=== PATIENT | female | born 1990 | race Caucasian/White ===

== ENCOUNTER 2019-04-17 23:43 | Emergency (ER) | payer MEDICAID, OTHER ==
[~2019-04-17] VITALS: Ht 160 cm; Wt 49.0 kg
[2019-04-17 23:46] VITALS: BP 123/81
[2019-04-18 00:05] LABS: BASOPHILS # (AUTO) 0.03 x10^3/uL (0-0.1); BASOPHILS % (AUTO) 1 % (0-1); EOSINOPHILS # (AUTO) 0.11 x10^3/uL (0-0.4); EOSINOPHILS % (AUTO) 2 % (1-7); LYMPHOCYTES # (AUTO) 2.14 x10^3/uL (1-3.4); LYMPHOCYTES % (AUTO) 40 % (22-44); MD NO; MEAN CORPUSCULAR HEMOGLOBIN 29.8 pg (27.0-34.8); MEAN CORPUSCULAR HGB CONC 33.4 g/dL (32.4-35.8); MEAN CORPUSCULAR VOLUME 89.2 fL (80-100); MEAN PLATELET VOLUME 8.6 fL (7.4-10.4); MONOCYTES # (AUTO) 0.37 x10^3/uL (0.2-0.8); MONOCYTES % (AUTO) 7 % (2-9); NEUTROPHILS # (AUTO) 2.67 x10^3/uL (1.8-6.8); NEUTROPHILS % (AUTO) 50 % (42-75); PLATELET COUNT 228 x10^3/uL (130-400); RED BLOOD COUNT 4.72 x10^6/uL (3.82-5.3); RED CELL DISTRIBUTION WIDTH 13.2 % (9.6-15.2)
[2019-04-18 00:10] LABS: MICROSCOPIC AUTO
[2019-04-18 00:12] LABS: CULTURE INDICATED? YES; HCG UR SG 1.023 (1.003-1.030)
[2019-04-18 00:17] LABS: ALBUMIN 3.9 g/dL (3.4-5.0); ANION GAP 5 mmol/L (5-15); CALCIUM 9.2 mg/dL (8.5-10.1); CHLORIDE 111 mmol/L (98-107); CREATININE 0.74 mg/dL (0.55-1.02)
[2019-04-18 00:19] LABS: ALANINE AMINOTRANSFERASE 79 U/L (12-78); ALKALINE PHOSPHATASE 82 U/L (45-117); BILIRUBIN,TOTAL 0.2 mg/dL (0.2-1.0); TOTAL PROTEIN 7.5 g/dL (6.4-8.2)
[2019-04-18] MEDS ORDERED: CEFTRIAXONE 1,000 MG IM ONE (00:30)
[2019-04-18] MEDS ORDERED: LIDOCAINE-MPF 1%, 2ML ONE (00:39)
[2019-04-18] MEDS ORDERED: CEFTRIAXONE 1,000 MG ONE (00:39)
== END 2019-04-18 00:55 | disposition home or self-care (01) ==
LOC: ED 04-18 00:15
DX: N30.00 Acute cystitis without hematuria (principal); F17.210 Nicotine dependence, cigarettes, uncomplicated
CPT/HCPCS: 36415; 80053; 81001; 81025; 85025; 87086; 96372; 99283; J0696

== ENCOUNTER 2019-09-03 02:49 | Emergency (ER) | payer OTHER ==
[~2019-09-03] VITALS: Ht 160 cm; Wt 48.4 kg
--- NOTE | 2019-09-03 03:15 | NUR ---
THIS IS A 28 YO FEMALE COMING IN FOR BILATERAL FLANK PAIN AND BILATERAL LQ ABD PAIN RATED 9/10. +N/V, NO DIARRHEA. SYMPTOMS STARTED AT APPROX 2100 LAST NIGHT. PATIENT STATES "MY DOCTOR THINKS I HAVE THYROID AND KIDNEY PROBLEMS BUT I HAVEN'T HAD ANY TESTS DONE YET. I HAD A BLADDER INFECTION A COUPLE MONTHS AGO". A&OX4, VSS, SPO2 AND BP MONITORS IN PLACE. CALL LIGHT IN REACH. UA COLLECTED AND SENT
[2019-09-03] MEDS ORDERED: ONDANSETRON ODT 4 MG ONE (03:18)
[2019-09-03] MEDS ORDERED: HYDROcodone/APAP 5/325 TABLET ONE ×2 (03:19→03:21)
[2019-09-03] MEDS ORDERED: IBUPROFEN 600 MG TABLET ONE (03:19)
[2019-09-03 03:21] LABS: HCG UR SG 1.019 (1.003-1.030); MICROSCOPIC NOT IND
[2019-09-03 03:22] LABS: CULTURE INDICATED? NO
[2019-09-03 03:22] LABS: BASOPHILS # (AUTO) 0.04 x10^3/uL (0-0.1); BASOPHILS % (AUTO) 0 % (0-1); EOSINOPHILS # (AUTO) 0.04 x10^3/uL (0-0.4); EOSINOPHILS % (AUTO) 1 % (1-7); LYMPHOCYTES % (AUTO) 26 % (22-44); MD NO; MEAN CORPUSCULAR HEMOGLOBIN 29.5 pg (27.0-34.8); MEAN CORPUSCULAR HGB CONC 33.5 g/dL (32.4-35.8); MEAN CORPUSCULAR VOLUME 88.2 fL (80-100); MEAN PLATELET VOLUME 8.4 fL (7.4-10.4); MONOCYTES # (AUTO) 0.43 x10^3/uL (0.2-0.8); MONOCYTES % (AUTO) 5 % (2-9); NEUTROPHILS # (AUTO) 5.99 x10^3/uL (1.8-6.8); NEUTROPHILS % (AUTO) 68 % (42-75); PLATELET COUNT 315 x10^3/uL (130-400); RED BLOOD COUNT 4.84 x10^6/uL (3.82-5.3); RED CELL DISTRIBUTION WIDTH 12.9 % (9.6-15.2)
--- NOTE | 2019-09-03 03:24 | NUR ---
PATIENT MEDICATED PER EMAR, TOLERATED WELL.
[2019-09-03] MEDS ORDERED: HYDROcodone/APAP 5/325 TABLET PO ONE (03:30)
[2019-09-03] MEDS ORDERED: IBUPROFEN 600 MG TABLET PO ONE (03:30)
[2019-09-03] MEDS ORDERED: ONDANSETRON ODT 4 MG PO ONE (03:30)
[2019-09-03 03:35] LABS: ALANINE AMINOTRANSFERASE 27 U/L (12-78); ALBUMIN 3.9 g/dL (3.4-5.0); ANION GAP 7 mmol/L (5-15); CALCIUM 8.8 mg/dL (8.5-10.1); CHLORIDE 106 mmol/L (98-107); CREATININE 0.79 mg/dL (0.55-1.02)
[2019-09-03 03:38] LABS: ALKALINE PHOSPHATASE 63 U/L (45-117); BILIRUBIN,TOTAL 0.4 mg/dL (0.2-1.0); TOTAL PROTEIN 7.3 g/dL (6.4-8.2)
--- NOTE | 2019-09-03 03:49 | NUR ---
PIV PLACED FOR CT W/CONTRAST
[2019-09-03] MEDS ORDERED: SODIUM CHLORIDE FLUSH 10ML SYR IVF ONE (04:00)
--- NOTE | 2019-09-03 04:45 | NUR ---
PATIENT TO CT
[2019-09-03] MEDS ORDERED: OMNIPAQUE 350 MG/ML, 100ML BOTTLE ONE (05:04)
[2019-09-03 05:07] VITALS: BP 115/73
--- NOTE | 2019-09-03 06:00 | NUR ---
Patient given discharge instructions and they have confirmed that they understand the instructions. Patient ambulatory with steady gait.
== END 2019-09-03 06:02 | disposition home or self-care (01) ==
LOC: ED 03:53
DX: K58.0 Irritable bowel syndrome with diarrhea (principal); K76.9 Liver disease, unspecified; N83.292 Other ovarian cyst, left side; R10.84 Generalized abdominal pain; R30.0 Dysuria; M08.00 Unspecified juvenile rheumatoid arthritis of unspecified site; F17.210 Nicotine dependence, cigarettes, uncomplicated
CPT/HCPCS: 36415; 74177; 80053; 80307; 81003; 81025; 83690; 85025; 99285; 99406; Q0162; Q9967

== ENCOUNTER 2020-01-15 10:20 | Emergency (ER) | payer SELFPAY ==
[~2020-01-15] VITALS: Ht 160 cm; Wt 48.3 kg
[2020-01-15 10:25] VITALS: BP 132/89
--- NOTE | 2020-01-15 11:14 | NUR ---
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
--- NOTE | 2020-01-15 11:21 | NUR ---
PT TO RM FROM LOBBY
[2020-01-15 11:25] LABS: MICROSCOPIC AUTO
[2020-01-15] MEDS ORDERED: PHENAZOPYRIDINE 200 MG TABLET ONE (11:26)
[2020-01-15] MEDS ORDERED: PHENAZOPYRIDINE 200 MG TABLET PO ONE (11:30)
--- NOTE | 2020-01-15 11:49 | NUR ---
PT MEDICATED PER ORDERS. UA COLLECTED, SENT TO LAB. PT AWAITING ALL RESULTS. NO DISTRESS, CONT TO MONITOR.
[2020-01-15 11:52] LABS: BASOPHILS # (AUTO) 0.11 x10^3/uL (0-0.1); BASOPHILS % (AUTO) 1 % (0-1); EOSINOPHILS % (AUTO) 2 % (1-7); LYMPHOCYTES # (AUTO) 2.82 x10^3/uL (1-3.4); LYMPHOCYTES % (AUTO) 33 % (22-44); MD NO; MEAN CORPUSCULAR HEMOGLOBIN 29.4 pg (27.0-34.8); MEAN CORPUSCULAR HGB CONC 32.8 g/dL (32.4-35.8); MEAN CORPUSCULAR VOLUME 89.5 fL (80-100); MEAN PLATELET VOLUME 8.6 fL (7.4-10.4); MONOCYTES # (AUTO) 0.41 x10^3/uL (0.2-0.8); MONOCYTES % (AUTO) 5 % (2-9); NEUTROPHILS # (AUTO) 5.06 x10^3/uL (1.8-6.8); NEUTROPHILS % (AUTO) 59 % (42-75); PLATELET COUNT 326 x10^3/uL (130-400); RED BLOOD COUNT 4.88 x10^6/uL (3.82-5.3); RED CELL DISTRIBUTION WIDTH 13.6 % (9.6-15.2)
[2020-01-15 12:03] LABS: ALBUMIN 4.3 g/dL (3.4-5.0); ANION GAP 6 mmol/L (5-15); CALCIUM 9.1 mg/dL (8.5-10.1); CHLORIDE 108 mmol/L (98-107)
--- NOTE | 2020-01-15 12:07 | NUR ---
REPORT GIVEN TO MARIA DEL CARMEN GRIFFIN.
--- NOTE | 2020-01-15 12:08 | NUR ---
Pt resting in room and nadn. Pt report no new pain.
[2020-01-15 12:12] LABS: CREATININE 0.72 mg/dL (0.55-1.02)
--- NOTE | 2020-01-15 12:39 | NUR ---
Patient/Caregiver given discharge instructions and they have confirmed that they understand the instructions. Patient ambulatory with steady gait.
== END 2020-01-15 12:41 | disposition home or self-care (01) ==
LOC: ED 11:16
DX: N30.01 Acute cystitis with hematuria (principal)
CPT/HCPCS: 36415; 80048; 81001; 82040; 84703; 85025; 87086; 99283

== ENCOUNTER 2020-09-16 22:15 | Emergency (ER) | payer SELFPAY ==
[~2020-09-16] VITALS: Ht 160 cm; Wt 46.0 kg
[2020-09-16] MEDS ORDERED: IBUPROFEN 200 MG TABLET PO ONE (22:30)
[2020-09-16 22:35] VITALS: BP 122/63
--- NOTE | 2020-09-16 23:00 | NUR ---
PT REQ TO GO HOME DOES NOT WANT [facility], ERP UPDATED
== END 2020-09-16 23:20 | disposition home or self-care (01) ==
LOC: ED 22:30
DX: S06.0X0A Concussion without loss of consciousness, initial encounter (principal); S00.81XA Abrasion of other part of head, initial encounter; S10.81XA Abrasion of other specified part of neck, initial encounter; R00.0 Tachycardia, unspecified; F17.210 Nicotine dependence, cigarettes, uncomplicated; Y04.8XXA Assault by other bodily force, initial encounter; Y93.89 Activity, other specified; Y92.89 Other specified places as the place of occurrence of the external cause; Y99.8 Other external cause status
CPT/HCPCS: 99283; 99406